=== PATIENT | male | born 1965 | race American Indian/Alaskan Native ===

== ENCOUNTER 2018-08-12 14:49 | Inpatient (IN) | payer MEDICAID, OTHER ==
[~2018-08-12] VITALS: Ht 165.1 cm; Wt 86.5 kg
[2018-08-12] VITALS (10 sets, daily range): BP systolic 84–118; BP diastolic 40–50
[2018-08-12] MEDS: lactulose 20gm/30ml cup PO ONE ×2 (15:47→20:40)
[2018-08-12 15:59] LABS: CLARITY,URINE TURBID (Clear); COLOR,URINE RED (Yellow); GLUCOSE, URINE 100 mg/dl (Neg); KETONES,URINE 15 mg/dl (Neg); LEUKOCYTE ESTERASE ,URINE LARGE (Neg); NITRITES, URINE POSITIVE (Neg); OCCULT BLOOD,URINE LARGE (Neg); PH,URINE 6.5 (4.8-8.0); PROTEIN,URINE >=300 mg/dl (Neg)
[2018-08-12] MEDS: dextrose 5%-normal saline 1,000 ML IV SCH (16:00)
[2018-08-12 16:07] LABS: BACTERIA,URINE 2+ /HPF (Neg); MUCUS STRANDS NONE SEEN /LPF (Neg); RBC,URINE TNTC /HPF (0-2); SQUAMOUS EPITHELIAL CELL,UR NONE SEEN /LPF (FEW); UA COLLECTION TYPE FOLEY CATH; WBC,URINE TNTC /HPF (0-4)
[2018-08-12] MEDS ORDERED: vancomycin inj 1,000 MG in normal saline 250ml IV soln 250 ML IV STA (16:25)
[2018-08-12 16:30] LABS: HEMATOCRIT 32.9 % (42.0-52.0); HEMOGLOBIN 11.3 g/dl (14.0-17.9); MEAN CORPUSCULAR HEMOGLOBIN 34.2 PG (27.0-31.0); MEAN CORPUSCULAR HGB CONC 34.5 % (33.0-36.5); MEAN CORPUSCULAR VOLUME 99.3 FL (78-98); MEAN PLATELET VOLUME 9.5 FL (7.4-10.4); RED BLOOD COUNT 3.31 X10'6 (4.70-6.10); RED CELL DISTRIBUTION WIDTH 16.7 % (11.5-14.5)
[2018-08-12] MEDS ORDERED: vancomycin/NS 1 GM ADD-VANTAGE 250 ML IV STA (16:30)
[2018-08-12] MEDS ORDERED: midazolam 100mg in NS 100ml 100 ML IV PRN (16:40)
[2018-08-12 16:46] LABS: BANDS% (MANUAL) 7 % (0-10); LYMPHOCYTES % (MANUAL) 2 % (21-51); METAMYLEOCYTES% (MANUAL) 1 % (0-0); MONOCYTES % (MANUAL) 4 % (2-12); NEUTROPHILS % (MANUAL) 86 % (42-75); PLATELET ESTIMATE DECREASED; TOTAL CELLS COUNTED 100
[2018-08-12 16:48] LABS: ANISOCYTOSIS 1+; BURR CELLS 2+; PLATELET COUNT 26 X10'3 (140-440); TOXIC VACUOLATION 3+; WHITE BLOOD COUNT 30.9 X10'3 (4.5-11.0)
[2018-08-12 16:49] LABS: ELLIPTOCYTES 1+
[2018-08-12 16:50] LABS: PROTHROMBIN TIME 44.1 SECONDS (9.0-12.0)
[2018-08-12] MEDS: NORepinephrine 8mg/ 250ml NS 250 ML IV SCH ×6 (16:52→23:24)
[2018-08-12 16:53] LABS: ALANINE AMINOTRANSFERASE 449 U/L (12-78); ALBUMIN 1.9 G/DL (3.4-5.0); ALKALINE PHOSPHATASE 159 IU/L (46-116); ANION GAP 13 (8-16); BILIRUBIN,TOTAL 8.7 MG/DL (0.1-1.0); BLOOD UREA NITROGEN 26 MG/DL (7-18); BUN/CREATININE RATIO 6.1 (5.4-32.0); CALCIUM 6.9 MG/DL (8.5-10.1); CHLORIDE 93 MMOL/L (99-107); CREATININE 4.29 MG/DL (0.60-1.10); SODIUM 122 MMOL/L (135-145); TOTAL CARBON DIOXIDE 16.5 MMOL/L (24-32); eGFR 14 ML/MIN
[2018-08-12 17:00] LABS: MAGNESIUM 1.9 MG/DL (1.5-2.4)
[2018-08-12 17:01] LABS: INR 4.5 INR
[2018-08-12 17:03] LABS: PARTIAL THROMBOPLASTIN TIME 104 SECONDS (22-32)
[2018-08-12 17:04] LABS: ALBUMIN/GLOBULIN RATIO 0.5 (1.1-1.5); ASPARTATE AMINO TRANSFERASE 1850 U/L (10-37); CREATINE KINASE 3222 U/L (39-308); GLUCOSE 107 MG/DL (70-104)
[2018-08-12] MEDS: FENTANYL-0.9 % NACL/PF 100 ML IV PRN (17:20)
[2018-08-12] MEDS ORDERED: OMEP20TA5 PO (17:37)
[2018-08-12] MEDS ORDERED: PROP20TA6 PO (17:37)
[2018-08-12] MEDS ORDERED: MORP30TA PO (17:37)
[2018-08-12] MEDS ORDERED: LACT10SO66 PO (17:37)
[2018-08-12] MEDS ORDERED: FURO20TA4 PO (17:37)
[2018-08-12] MEDS ORDERED: albumin (Human) 5% 250 ML IV solution IV STA (18:31)
[2018-08-12] MEDS ORDERED: acetaminophen 325mg tablet PO PRN (18:35)
[2018-08-12 19:01] LABS: ABG BASE EXCESS -19.1 mmol/L (-2.0-3.0); ABG HCO3 10.8 mmol/L (22.0-26.0); ABG OXYGEN SATURATION 92.9 % (95-98); ABG PCO2 (T) 35.9 mmHg (35.0-48.0); ABG PH (T) 7.077 (7.350-7.450); FCOHb 0.7 % (0.5-1.5); FMetHb 0.1 % (0.3-1.12); FO2Hb 92.2 % (94-100); MINUTE VOLUME 8 L/min; PATIENT TEMPERATURE 34.1; PEEP 5 cm H2O; RESPIRATORY RATE 16 b/min; RESPIRATORY RATE (OBSERVED) 16 b/min; TIDAL VOLUME 450 mL
[2018-08-12 19:04] LABS: AMYLASE 19 U/L (25-115); LIPASE 111 U/L (73-393)
[2018-08-12] MEDS ORDERED: vasopressin inj. 60 UNIT in normal saline 100ml IV soln 97 ML IV SCH (19:15)
[2018-08-12] MEDS ORDERED: calcium chloride inj. 1,000 MG in normal saline 100ml IV soln 90 ML IV ONE (19:20)
[2018-08-12] MEDS ORDERED: etomidate 2mg/ml inj. ONE (20:00)
[2018-08-12] MEDS ORDERED: rocuronium 10mg/ml inj IV ONE (20:00)
[2018-08-12] MEDS ORDERED: NORepinephrine bitartrate 8 MG in NS 250 ML BAG (32 mcg/ml) IV ONE (20:00)
[2018-08-12] MEDS: VASOPRESSIN 60 UNITS in NS 100ml IV SCH (20:02)
[2018-08-12] MEDS: hydrocortisone sod succ/PF 100mg/2ml inj. IV SCH (20:21)
[2018-08-12] MEDS: Dextrose 10%-water IV solution 1,000 ML IV SCH (20:23)
[2018-08-12] MEDS: lactulose 20gm/30ml cup PO SCH (20:24)
[2018-08-12] MEDS: piperacillin/tazobactam inj. 2.25 GM in normal saline 50ml IV IV SCH (20:35)
[2018-08-12 20:51] LABS: ABG BASE EXCESS -20.3 mmol/L (-2.0-3.0); ABG OXYGEN SATURATION 94.7 % (95-98); ABG PCO2 (T) 34.8 mmHg (35.0-48.0); ABG PH (T) 7.052 (7.350-7.450); ABG PO2 (T) 69.3 mmHg (83-108); FCOHb 0.2 % (0.5-1.5); FMetHb 0.3 % (0.3-1.12); FO2Hb 94.2 % (94-100); MINUTE VOLUME 8 L/min; PATIENT TEMPERATURE 33.7; PEEP 5 cm H2O; RESPIRATORY RATE 16 b/min; RESPIRATORY RATE (OBSERVED) 16 b/min; TIDAL VOLUME 450 mL; TOTAL HEMOGLOBIN 11.6 G/dl (14.0-18.0)
[2018-08-12] MEDS: albumin (Human) 5% 250 ML IV solution IV SCH (20:56)
[2018-08-12] MEDS: normal saline 1000ml 1,000 ML IV SCH (21:13)
[2018-08-12 21:33] LABS: HEMATOCRIT 30.9 % (42.0-52.0); HEMOGLOBIN 10.7 g/dl (14.0-17.9); MEAN CORPUSCULAR HGB CONC 34.6 % (33.0-36.5); MEAN CORPUSCULAR VOLUME 98.5 FL (78-98); MEAN PLATELET VOLUME 10.1 FL (7.4-10.4); RED BLOOD COUNT 3.14 X10'6 (4.70-6.10); RED CELL DISTRIBUTION WIDTH 16.7 % (11.5-14.5)
[2018-08-12] MEDS: levoFLOXACIN-Levaquin 250mg/D5 50 ML IV SCH (21:33)
[2018-08-12 21:51] LABS: PROTHROMBIN TIME 53.1 SECONDS (9.0-12.0)
[2018-08-12 21:55] LABS: ALANINE AMINOTRANSFERASE 619 U/L (12-78); ALBUMIN 2.2 G/DL (3.4-5.0); ALKALINE PHOSPHATASE 181 IU/L (46-116); BILIRUBIN,TOTAL 9.2 MG/DL (0.1-1.0); BLOOD UREA NITROGEN 26 MG/DL (7-18); BUN/CREATININE RATIO 6.2 (5.4-32.0); CALCIUM 7.8 MG/DL (8.5-10.1); CHLORIDE 97 MMOL/L (99-107); CREATININE 4.21 MG/DL (0.60-1.10); MAGNESIUM 1.8 MG/DL (1.5-2.4); eGFR 15 ML/MIN
[2018-08-12 22:09] LABS: ALBUMIN/GLOBULIN RATIO 0.6 (1.1-1.5); ASPARTATE AMINO TRANSFERASE 2180 U/L (10-37); PLATELET COUNT 21 X10'3 (140-440); TOTAL PROTEIN 5.7 G/DL (6.4-8.2); WHITE BLOOD COUNT 31.1 X10'3 (4.5-11.0)
[2018-08-12 22:10] LABS: ANION GAP 22 (8-16); GLUCOSE 83 MG/DL (70-104); POTASSIUM 4.8 MMOL/L (3.5-5.1); SODIUM 131 MMOL/L (135-145)
[2018-08-12 22:14] LABS: TOTAL CARBON DIOXIDE 12.5 MMOL/L (24-32)
[2018-08-12 22:18] LABS: INR 5.5 INR; PARTIAL THROMBOPLASTIN TIME 120 SECONDS (22-32)
[2018-08-12] MEDS: sodium bicarbonate (8.4%) inj. 150 MEQ in dextrose 5%-water 1,000 ML IV SCH (23:23)
[2018-08-13] VITALS (25 sets, daily range): BP systolic 77–111; BP diastolic 36–55
[2018-08-13 00:51] LABS: ABG BASE EXCESS -19.9 mmol/L (-2.0-3.0); ABG HCO3 8.4 mmol/L (22.0-26.0); ABG OXYGEN SATURATION 96.7 % (95-98); ABG PCO2 (T) 25.8 mmHg (35.0-48.0); ABG PH (T) 7.121 (7.350-7.450); ABG PO2 (T) 86.5 mmHg (83-108); FCOHb 0.3 % (0.5-1.5); FMetHb 0.3 % (0.3-1.12); FO2Hb 96.1 % (94-100); MINUTE VOLUME 12 L/min; PATIENT TEMPERATURE 35.1; PEEP 8 cm H2O; RESPIRATORY RATE 24 b/min; RESPIRATORY RATE (OBSERVED) 24 b/min; TIDAL VOLUME 450 mL; TOTAL HEMOGLOBIN 11.5 G/dl (14.0-18.0)
[2018-08-13 00:55] LABS: OXYGEN SATURATION (MIXED VEN) 84.5 % (60-80); PO2 MIXED VENOUS (TEMP COR) 45.2 mmHg (35-46)
[2018-08-13] MEDS: piperacillin/tazobactam inj. 2.25 GM in normal saline 50ml IV IV SCH ×4 (01:33→23:03)
[2018-08-13] MEDS ORDERED: dextrose 50%-water 50ml dispensing syringe IV ONE (02:51)
[2018-08-13] MEDS: VANCOMYCIN LEVEL IV SCH ×2 (03:00→23:49)
[2018-08-13 03:31] LABS: TOTAL CELLS COUNTED 100
[2018-08-13 03:34] LABS: BASOPHILS % (AUTO) 0 % (0-1); EOSINOPHILS # (AUTO) 5.2 X10'3 (0-0.9); EOSINOPHILS % (AUTO) 15.4 % (0-6); HEMOGLOBIN 10.6 g/dl (14.0-17.9); MEAN CORPUSCULAR HEMOGLOBIN 33.8 PG (27.0-31.0); MEAN CORPUSCULAR HGB CONC 34.1 % (33.0-36.5); MEAN PLATELET VOLUME 10.1 FL (7.4-10.4); MONOCYTES # (AUTO) 1.4 X10'3 (0-0.9); MONOCYTES % (AUTO) 4.2 % (2-12); NEUTROPHILS # (AUTO) 26.2 X10'3 (1.8-7.7); NEUTROPHILS % (AUTO) 77.4 % (42-75); RED BLOOD COUNT 3.13 X10'6 (4.70-6.10); RED CELL DISTRIBUTION WIDTH 17.7 % (11.5-14.5)
[2018-08-13 03:34] LABS: PLATELET ESTIMATE DECREASED
[2018-08-13 03:35] LABS: ANISOCYTOSIS 1+
[2018-08-13 03:37] LABS: BURR CELLS 3+
[2018-08-13 03:38] LABS: POLYCHROMASIA FEW
[2018-08-13 03:55] LABS: PROTHROMBIN TIME 62.5 SECONDS (9.0-12.0)
[2018-08-13 03:58] LABS: ALANINE AMINOTRANSFERASE 935 U/L (12-78); ALBUMIN 2.1 G/DL (3.4-5.0); ALKALINE PHOSPHATASE 141 IU/L (46-116); ANION GAP 19 (8-16); BILIRUBIN,TOTAL 10.6 MG/DL (0.1-1.0); BLOOD UREA NITROGEN 27 MG/DL (7-18); BUN/CREATININE RATIO 6.2 (5.4-32.0); CALCIUM 7.1 MG/DL (8.5-10.1); CHLORIDE 95 MMOL/L (99-107); CREATININE 4.39 MG/DL (0.60-1.10); MAGNESIUM 1.8 MG/DL (1.5-2.4); SODIUM 124 MMOL/L (135-145); eGFR 14 ML/MIN
[2018-08-13 04:01] LABS: PLATELET COUNT 24 X10'3 (140-440); WHITE BLOOD COUNT 33.8 X10'3 (4.5-11.0)
[2018-08-13 04:11] LABS: ALBUMIN/GLOBULIN RATIO 0.6 (1.1-1.5); GLUCOSE 54 MG/DL (70-104); PHOSPHORUS 7.9 MG/DL (2.3-4.5); POTASSIUM 4.8 MMOL/L (3.5-5.1); TOTAL PROTEIN 5.5 G/DL (6.4-8.2)
[2018-08-13 04:24] LABS: ASPARTATE AMINO TRANSFERASE 4255 U/L (10-37); VANCOMYCIN,RANDOM 14.4 UG/ML
[2018-08-13 04:27] LABS: INR 6.5 INR; PARTIAL THROMBOPLASTIN TIME 117 SECONDS (22-32)
[2018-08-13 04:28] LABS: TOTAL CARBON DIOXIDE 10.2 MMOL/L (24-32)
[2018-08-13 04:29] LABS: LACTIC SEPSIS 11.1 MMOL/L (0.4-2.0)
[2018-08-13] MEDS ORDERED: sodium bicarbonate (8.4%) 1 mEq/ml syringe IV ONE (04:40)
[2018-08-13] MEDS ORDERED: phytonadione inj. 5 MG in normal saline 100ml IV soln 99.5 ML IV ONE (04:40)
[2018-08-13] MEDS ORDERED: sodium bicarbonate (8.4%) 1 mEq/ml syringe ONE (04:41)
[2018-08-13] MEDS: NORepinephrine 8mg/ 250ml NS 250 ML IV SCH ×5 (04:54→22:33)
[2018-08-13 05:31] LABS: ABG HCO3 9.8 mmol/L (22.0-26.0); ABG PCO2 (T) 29.2 mmHg (35.0-48.0); ABG PO2 (T) 88.1 mmHg (83-108); FCOHb 0.3 % (0.5-1.5); FMetHb 0.3 % (0.3-1.12); FO2Hb 95.4 % (94-100); MINUTE VOLUME 12 L/min; PATIENT TEMPERATURE 36.5; PEEP 8 cm H2O; RESPIRATORY RATE 24 b/min; RESPIRATORY RATE (OBSERVED) 24 b/min; TIDAL VOLUME 450 mL; TOTAL HEMOGLOBIN 10.9 G/dl (14.0-18.0)
[2018-08-13 05:31] LABS: OXYGEN SATURATION (MIXED VEN) 84.2 % (60-80); PO2 MIXED VENOUS (TEMP COR) 50.6 mmHg (35-46)
[2018-08-13] MEDS ORDERED: sodium bicarbonate (8.4%) inj. 150 MEQ in sodium chloride 0.45% 1,000 ML IV SCH (05:35)
[2018-08-13] MEDS ORDERED: midazolam 100mg in NS 100ml 100 ML IV PRN (05:38)
[2018-08-13] MEDS: normal saline 1000ml 1,000 ML IV SCH (06:00)
[2018-08-13 06:25] LABS: ANISOCYTOSIS 2+; PLATELET ESTIMATE DECREASED; TOTAL CELLS COUNTED 100
[2018-08-13] MEDS ORDERED: vancomycin/NS 1 GM ADD-VANTAGE 250 ML IV ONE (06:35)
[2018-08-13] MEDS: albumin (Human) 5% 250 ML IV solution IV SCH ×3 (07:31→20:00)
[2018-08-13] MEDS: pantoprazole 40 MG vial IV SCH ×2 (07:31→08:00)
[2018-08-13] MEDS: lactulose 20gm/30ml cup PO SCH ×3 (07:32→20:01)
[2018-08-13] MEDS: hydrocortisone sod succ/PF 100mg/2ml inj. IV SCH ×4 (07:32→20:01)
[2018-08-13] MEDS ORDERED: vancomycin/NS 1 GM ADD-VANTAGE 250 ML IV PRN (08:00)
[2018-08-13 08:22] LABS: HEMOGLOBIN 9.8 g/dl (14.0-17.9); MEAN CORPUSCULAR HEMOGLOBIN 34.3 PG (27.0-31.0); MEAN CORPUSCULAR HGB CONC 34.9 % (33.0-36.5); MEAN CORPUSCULAR VOLUME 98.5 FL (78-98); RED BLOOD COUNT 2.84 X10'6 (4.70-6.10); RED CELL DISTRIBUTION WIDTH 17.8 % (11.5-14.5)
[2018-08-13] MEDS: mineral oil/petrolatum ophthal oint EACHEYE PRN (08:27)
[2018-08-13 08:36] LABS: ANION GAP 21 (8-16); BLOOD UREA NITROGEN 27 MG/DL (7-18); BUN/CREATININE RATIO 5.7 (5.4-32.0); CALCIUM 6.7 MG/DL (8.5-10.1); CHLORIDE 96 MMOL/L (99-107); CREATININE 4.72 MG/DL (0.60-1.10); MAGNESIUM 1.8 MG/DL (1.5-2.4); SODIUM 127 MMOL/L (135-145); eGFR 13 ML/MIN
[2018-08-13 08:38] LABS: GLUCOSE 101 MG/DL (70-104); PHOSPHORUS 8.1 MG/DL (2.3-4.5); POTASSIUM 5.6 MMOL/L (3.5-5.1)
[2018-08-13 08:48] LABS: TOTAL CARBON DIOXIDE 10.5 MMOL/L (24-32)
[2018-08-13 08:59] LABS: PROTHROMBIN TIME 74.9 SECONDS (9.0-12.0)
[2018-08-13 09:03] LABS: INR 7.8 INR
[2018-08-13 09:04] LABS: PARTIAL THROMBOPLASTIN TIME 131 SECONDS (22-32)
[2018-08-13 09:52] LABS: WHITE BLOOD COUNT 31.6 X10'3 (4.5-11.0)
[2018-08-13 09:54] LABS: PLATELET COUNT 14 X10'3 (140-440)
[2018-08-13 09:57] LABS: NUCLEATED RED BLOOD CELLS 1 /100WBC (0-0); PLATELET ESTIMATE DECREASED; TOTAL CELLS COUNTED 100
[2018-08-13 09:58] LABS: ANISOCYTOSIS 2+; LARGE PLATELETS FEW; MICROCYTOSIS 1+
[2018-08-13 09:59] LABS: BURR CELLS 1+
[2018-08-13] MEDS: dextrose 5%-normal saline 1,000 ML IV SCH (11:55)
[2018-08-13] MEDS: VASOPRESSIN 60 UNITS in NS 100ml IV SCH (16:21)
[2018-08-13] MEDS: Dextrose 10%-water IV solution 1,000 ML IV SCH (16:21)
[2018-08-13] MEDS: sodium bicarbonate (8.4%) inj. 150 MEQ in dextrose 5%-water 1,000 ML IV SCH (16:22)
[2018-08-14] VITALS (10 sets, daily range): BP systolic 68–85; BP diastolic 37–43
[2018-08-14] MEDS: FENTANYL-0.9 % NACL/PF 100 ML IV PRN (01:26)
[2018-08-14] MEDS ORDERED: vancomycin/NS 1 GM ADD-VANTAGE 250 ML IV SCH (07:00)
[2018-08-14] MEDS: piperacillin/tazobactam inj. 2.25 GM in normal saline 50ml IV IV SCH (07:47)
[2018-08-14] MEDS: pantoprazole 40 MG vial IV SCH (07:49)
[2018-08-14] MEDS: albumin (Human) 5% 250 ML IV solution IV SCH (07:49)
[2018-08-14] MEDS: hydrocortisone sod succ/PF 100mg/2ml inj. IV SCH (07:49)
[2018-08-14] MEDS: lactulose 20gm/30ml cup PO SCH (07:49)
[2018-08-14] MEDS: mineral oil/petrolatum ophthal oint EACHEYE PRN (07:49)
[2018-08-14] MEDS: sodium bicarbonate (8.4%) inj. 150 MEQ in dextrose 5%-water 1,000 ML IV SCH (07:51)
[2018-08-14] MEDS: NORepinephrine 8mg/ 250ml NS 250 ML IV SCH (07:51)
[2018-08-14] MEDS: dextrose 5%-normal saline 1,000 ML IV SCH (07:55)
[2018-08-14] MEDS: levoFLOXACIN-Levaquin 250mg/D5 50 ML IV SCH (08:00)
[2018-08-17] MEDS ORDERED: VANCOMYCIN LEVEL IV ONE (06:30)
== END 2018-08-14 12:12 | disposition expired | DRG 720 ==
LOC: ER 14:50 → ED HOLD 18:31 → CICU 2S 19:24
PROVIDERS: ADMIT Internal Medicine Critical Care Medicine; ATTEND Internal Medicine Critical Care Medicine
PROC: 5A1945Z Respiratory Ventilation, 24-96 Consecutive Hours (ICD-10-PCS; principal; 2018-08-12)
PROC: 0BH17EZ Insertion of Endotracheal Airway into Trachea, Via Natural or Artificial Opening (ICD-10-PCS; 2018-08-12)
PROC: 0D9670Z Drainage of Stomach with Drainage Device, Via Natural or Artificial Opening (ICD-10-PCS; 2018-08-12)
PROC: 02HV33Z Insertion of Infusion Device into Superior Vena Cava, Percutaneous Approach (ICD-10-PCS; 2018-08-12)
PROC: B548ZZA Ultrasonography of Superior Vena Cava, Guidance (ICD-10-PCS; 2018-08-12)
PROC: 03HY32Z Insertion of Monitoring Device into Upper Artery, Percutaneous Approach (ICD-10-PCS; 2018-08-12)
DX: A41.9 Sepsis, unspecified organism (principal); J96.00 Acute respiratory failure, unspecified whether with hypoxia or hypercapnia; N17.0 Acute kidney failure with tubular necrosis; R65.21 Severe sepsis with septic shock; J18.1 Lobar pneumonia, unspecified organism; T68.XXXA Hypothermia, initial encounter; C22.0 Liver cell carcinoma; D68.9 Coagulation defect, unspecified; K59.00 Constipation, unspecified; N12 Tubulo-interstitial nephritis, not specified as acute or chronic; E16.2 Hypoglycemia, unspecified; B19.20 Unspecified viral hepatitis C without hepatic coma; G89.29 Other chronic pain; K74.60 Unspecified cirrhosis of liver; M54.5 Low back pain; R31.9 Hematuria, unspecified; Z66 Do not resuscitate; Z88.5 Allergy status to narcotic agent; Z78.1 Physical restraint status; Z79.899 Other long term (current) drug therapy
CPT/HCPCS: 36415; 36556; 36600; 70450; 71045; 74176; 80048; 80053; 80202; 81001; 82140; 82150; 82550; 82803; 82810; 82948; 83605; 83690; 83735; 84100; 84145; 84443; 85018; 85025; 85610; 85730; 86885; 86900; 86901; 87040; 87070; 87077; 87088; 87186; 93005; 94002; 94003; 94760; 96374; 99291; 99292; A6212; A6213; A6250; A6257; A6449; C1751; C9113; J1720; J1956; J2250; J2543; J3370; J3430; J3490; J7030; J7042; P9045